=== PATIENT | male | born 2000 | race Caucasian/White ===

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

== ENCOUNTER 2024-08-10 20:42 | Observation (INO) ==
[2024-08-10 21:39] LABS: Albumin Globulin Ratio 2.2 (0.9-2); Albumin Level 5.4 gm/dl (3.4-5.0); BUN Creatinine Ratio 19.1 (10-20); Bilirubin,Total 1.4 mg/dl (0.2-1.0); Calcium 9.8 mg/dl (8.6-10.3); Creatinine Clr Calc Pharmacy 106.9 ml/min; Globulin 2.5 gm/dl (2.5-4.0); Potassium 3.9 mmol/L (3.5-5.1); Total Protein 7.9 gm/dl (6.0-8.3)
--- NOTE | 2024-08-10 21:44 | Emergency Department Note ---
Impression & Plan Right lower quadrant abdominal pain, Acute appendicitis ED Provider Note NAME: ALISON BANEGAS AGE: 24 SEX: Male INFORMANT: Patient ED PROVIDER(S): Dandre Aguirre MD CHIEF COMPLAINT: Abdominal pain PLAN: Disposition: Admitted Outpatient prescription management: none Referral: None MEDICAL DECISION MAKING: Patient presented because of right lower quadrant abdominal pain on examination he was tender in the right lower quadrant. CT imaging as well as blood work obtained. Patient does have a leukocytosis. CT scan reveals findings concerning for early appendicitis. Patient declined analgesia. He was hydrated. Consultation was made with general surgery, Dr. Goldberg. Case discussed and diagnostics were reviewed. Discussed initiation of IV Mefoxin and he agreed. He will admit the patient for operative management. I refer you to the EMR for further details. Care/management discussed with: senior manager creative services Level of care consideration(s): After review of the information above and other included data, I feel the patient requires escalation of care to admission Triage Nursing notes: reviewed and agree them. Vital Signs: reviewed and remarkable for mild tachycardia Additional History obtained from: none Chronic Medical/Social Conditions affecting care: none Prior/ Outside/ External records reviewed: none Differential Diagnosis: Appendicitis, testicular torsion, infections, diverticulitis, UTI, obstruction, mesenteric ischemia, aortic pathology, inflammatory bowel disease, renal colic, PUD, pancreatitis, biliary pathology, hernia, volvulus, constipation, as well as other pathologies. Diagnostics, independently interpreted by me: ECG: none Cardiac Monitoring: Cardiac monitoring ordered by me: The patient was placed on continuous cardiac monitoring and observed. It revealed a normal sinus rhythm at 98 beats per minute without ectopy or evidence of dysrhythmia. Medical decision rules: none Imaging studies: CT scan of the abdomen and pelvis is concerning for early appendicitis. I refer you to the EMR for further details. HPI: 24 year old Male arrives for evaluation of right lower quadrant abdominal pain. This started this morning around 12 PM and is persisting. Pain is worse with movement. The patient also notes the following associated symptoms, some transient nausea and vomiting. Denies any sick contacts or unusual foods. The patient has found no relieving factors. Current pain is rated as 7/10. Pt denies LOC, headache, fevers, chills, diaphoresis, visual changes, neck pain, chest pain, breathing difficulties, nausea, vomiting, back pain, melena, hematochezia, urinary symptoms, pain, numbness, weakness, lymphadenopathy, rash, or other complaints.. PAST MEDICAL HISTORY: See Below, PAST SURGICAL HISTORY: See Below, wisdom teeth SOCIAL HISTORY: Employed at the [employer], see below HOME MEDICATIONS: See Below ALLERGIES: See Below VITALS: See Below PHYSICAL EXAMINATION: GENERAL: Awake, alert, well-appearing, in no distress HENT: Normocephalic, atraumatic. Oropharynx unremarkable. EYES: Normal conjunctiva. Sclera non-icteric. NECK: Inspection normal. Non-tender. Supple. No nuchal rigidity. FROM. No masses. RESPIRATORY: Clear to auscultation. No wheezes. No rales. Normal respiratory effort. CARDIAC: No borderline tachycardic rmal rate. Normal rhythm. No murmurs. No rubs. Extremities warm and well perfused. Pulses equal. No JVD. GI: Soft, non-distended. Right lower quadrant tenderness to palpation. Positive obturator sign. No rebound but mild guarding. No masses. RECTAL: Deferred. MUSCULOSKELETAL: Atraumatic. Chest examination reveals no tenderness. The back is symmetrical on inspection without obvious abnormality. There is no CVA tenderness to palpation. No joint edema. LOWER EXTREMITIES: Calves are equal size bilaterally and non-tender. No edema. No discoloration. NEURO: Normal sensorium. No sensory or motor deficits noted. SKIN: No rash or jaundice noted. PROCEDURES: none CRITICAL CARE: none OBSERVATION NOTE: none Past Med/Surg History Problem List (Updated 08/11/24 @ 01:25 by Dandre Aguirre MD) Acute appendicitis (Acute) Right lower quadrant abdominal pain (Acute) Atypical nevi (Acute) Dietary counseling (Acute) Exercise counseling (Acute) Surgical History (System 11/17/19 @ 14:34 by Ashanti Antunez) Hx of circumcision Family History (System 11/17/19 @ 14:34 by Ashanti Antunez) Mother No pertinent family history Father No pertinent family history Social History (System 11/17/19 @ 14:34 by Ashanti Antunez) Smoking Status: Never smoker Do You Dip or Chew Tobacco: No; Hx Alcohol Use: No Hx Substance Use: No Preferred Language: Czech Current Living Situation Comment: lives with mom, dad, 3 brothers and 3 sisters Feels Safe at Home: Yes Childhood Exposure to Second-Hand Smoke: No Dental Care, Regularly: Yes Allergies Allergies Allergy/AdvReac Type Severity Reaction Status Date / Time No Known Allergies Allergy Verified 08/10/24 22:20 Home Meds Home Medications Medication Instructions Recorded Confirmed No Known Home Medications 11/05/18 08/10/24 Results & Data (ED) Vital Signs Vital Signs - 24 hr 08/10/24 20:44 08/10/24 21:02 08/10/24 21:02 Temperature 36.4 C L Temperature Source Oral Pulse Rate 66 69 Pulse Rate [Apical] 87 Pulse Rhythm Regular Pulse Strength Normal Respiratory Rate 16 12 14 Respiratory Effort / Characteristics Non-Labored Spontaneous Non-Labored Spontaneous Respiratory Depth Normal Respiratory Pattern Regular Blood Pressure 111/58 L Blood Pressure [Right Arm] 130/65 Blood Pressure Mean 75 Blood Pressure Mean [Right Arm] 86 Blood Pressure Position Sitting Pulse Oximetry 99 Oxygen Delivery Method Room Air Sepsis Recent Fever Within 48 Hours No Sepsis New/Unexplained Change in Mental Status N/A Sepsis Action Taken by Nursing No Action Required 08/10/24 21:06 08/10/24 22:53 08/10/24 23:00 Temperature Temperature Source Pulse Rate 65 106 H Pulse Rate [Apical] 106 H Pulse Rhythm Pulse Strength Respiratory Rate 16 19 Respiratory Effort / Characteristics Respiratory Depth Respiratory Pattern Blood Pressure 112/67 Blood Pressure [Right Arm] 114/70 Blood Pressure Mean 78 Blood Pressure Mean [Right Arm] 84 Blood Pressure Position Pulse Oximetry 98 97 Oxygen Delivery Method Room Air Sepsis Recent Fever Within 48 Hours Sepsis New/Unexplained Change in Mental Status Sepsis Action Taken by Nursing 08/10/24 23:30 08/11/24 00:59 Temperature Temperature Source Pulse Rate 110 H 105 H Pulse Rate [Apical] Pulse Rhythm Pulse Strength Respiratory Rate 22 Respiratory Effort / Characteristics Respiratory Depth Respiratory Pattern Blood Pressure 113/67 Blood Pressure [Right Arm] Blood Pressure Mean 77 Blood Pressure Mean [Right Arm] Blood Pressure Position Pulse Oximetry 98 Oxygen Delivery Method Sepsis Recent Fever Within 48 Hours Sepsis New/Unexplained Change in Mental Status Sepsis Action Taken by Nursing Laboratory Data 08/10/24 21:00 08/10/24 21:00 Lab Results 08/10/24 08/10/24 Range/Units 20:51 21:00 WBC 16.68 H (4.8-10.8) K/ul RBC 5.42 (4.70-6.10) M/uL Hgb 16.9 (14.0-18.0) g/dl Hct 47.6 (42.0-52.0) % MCV 87.8 (80.0-100.0) fL MCH 31.2 (25.0-34.0) pg MCHC 35.5 (32.0-36.0) g/dL RDW Std Deviation 37.6 (36.4-46.3) fL RDW Coeff of Ana 11.8 (11.5-14.5) % Plt Count 204 (130-400) K/uL MPV 9.2 L (9.4-12.4) fL Immature Gran % (Auto) 0.4 % Neut % (Auto) 89.4 % Lymph % (Auto) 5.5 % Wood % (Auto) 4.4 % Eos % (Auto) 0.1 % Baso % (Auto) 0.2 % Neut # (Auto) 14.93 H (1.40-6.50) K/uL Lymph # (Auto) 0.91 L (1.20-3.40) K/uL Wood # (Auto) 0.73 H (0.11-0.59) K/uL Eos # (Auto) 0.01 (0.00-0.50) K/uL Baso # (Auto) 0.04 (0.00-0.20) K/uL Immature Gran # (Auto) 0.06 (0.01-0.20) K/uL Sodium 138 (136-145) mmol/L Potassium 3.9 (3.5-5.1) mmol/L Chloride 102 (98-107) mmol/L Carbon Dioxide 26 (21-32) mmol/L Anion Gap 10 (3-11) BUN 21 (6-23) mg/dl Creatinine 1.10 (0.6-1.4) mg/dl Est Cr Clr Drug Dosing 106.9 ml/min eGFR 96.14 BUN/Creatinine Ratio 19.1 (10-20) Glucose 131 H (70-99(Fasting)) mg/dl Calcium 9.8 (8.6-10.3) mg/dl Total Bilirubin 1.4 H (0.2-1.0) mg/dl AST 22 (13-39) U/L ALT 17 (7-52) U/L Alkaline Phosphatase 55 (34-104) U/L Total Protein 7.9 (6.0-8.3) gm/dl Albumin 5.4 H (3.4-5.0) gm/dl Globulin 2.5 (2.5-4.0) gm/dl Albumin/Globulin Ratio 2.2 H (0.9-2) Lipase 10 L (11-82) U/L Urine Color Yellow Urine Appearance Clear (Clear) Urine pH 7.0 (4.5-7.5) Ur Specific [place] > 1.045 H (1.000-1.030) Urine Protein Trace H (Negative) Urine Glucose (UA) Negative (Negative) Urine Ketones 2+ H (Negative) Urine Blood Negative (Negative) Urine Nitrite Negative (Negative) Urine Bilirubin Negative (Negative) Urine Urobilinogen Negative (Negative) Ur Leukocyte Esterase Negative (Negative) Urine WBC (Auto) 0-5 (0-5) /hpf Urine RBC (Auto) 0-2 (0-2) /hpf U Hyaline Cast (Auto) 0-2 (0-2) /lpf U Epithel Cells (Auto) 0-2 (0-2) /hpf Urine Bacteria (Auto) None Seen (None Seen) Administered Medications Discontinued Medications Cefoxitin Sodium (Mefoxin) 2,000 mg in 60 mls @ 100 mls/hr IV NOW STA Stop: 08/11/24 00:25 Last Infusion: 08/11/24 01:01 Dose: Infused Documented By: Admin: 08/10/24 23:56 Dose: 100 mls/hr Documented By: NINA Sodium Chloride (Nss) 1,000 mls @ 999 mls/hr IV .Q1H1M ONE Stop: 08/11/24 00:52 Last Infusion: 08/11/24 01:02 Dose: Infused Documented By: Admin: 08/10/24 23:56 Dose: 999 mls/hr Documented By: NINA Lactated Ringer's (Lr) 500 mls @ 999 mls/hr IV .Q31M ONE Stop: 08/11/24 00:31 Last Admin: 08/11/24 00:59 Dose: 999 mls/hr Documented By: NINA Ioversol (Optiray 320 100ml) 90 ml IV ONCE ONE Stop: 08/10/24 22:17 Last Admin: 08/10/24 22:17 Dose: 90 ml Documented By: VIKY Imaging Data Radiologist's Impression: Abdomen/Pelvis CT 08/10/24 21:39 CR Exam(s): CT ABDOMEN + PELVIS With Contrast IV Amt: 90 cc opti 320 EXAM: CT Abdomen and Pelvis With Intravenous Contrast CLINICAL HISTORY: Reason for exam: RLQ abd pain. TECHNIQUE: Axial computed tomography images of the abdomen and pelvis with intravenous contrast. Automated exposure control was utilized for the study. A dose lowering technique was utilized adhering to the principles of ALARA. CONTRAST: Patient received 90 cc opti 320 of IV contrast COMPARISON: No relevant prior studies available. FINDINGS: Lung bases: No consolidation. ABDOMEN: Liver: No mass. Gallbladder and bile ducts: No calcified stones. No ductal dilation. Pancreas: No mass. No ductal dilation. Spleen: No splenomegaly. Adrenals: No mass. Kidneys and ureters: No solid mass. No hydronephrosis. Stomach and bowel: Unremarkable. No obstruction. No mucosal thickening. PELVIS: Appendix: The appendix is distended at 12 mm. There is some wall thickening. No significant inflammatory changes are seen. Bladder: No calculi are noted within the bladder.. Reproductive: Unremarkable as visualized. ABDOMEN and PELVIS: Intraperitoneal space: No free air. No significant fluid collection. Bones/joints: There is a bilateral spondylolysis with a slight spondylolisthesis of L5 on S1. Soft tissues: Unremarkable. Vasculature: No abdominal aortic aneurysm. Lymph nodes: No enlarged lymph nodes. IMPRESSION: The appendix is distended with some wall thickening. This may represent early or mild appendicitis Communications: Call Doctor Appendicitis Electronically signed by: Alberto Pérez MD 08/10/24 23:41 PM Discharge Plan Visit Data Chief Complaint: Abdominal Pain Stated Complaint: RLQ ABD PAIN,VOMITING ED Provider: Dandre Aguirre Discharge Problem: Right lower quadrant abdominal pain, Acute appendicitis Forms Stand Alone Forms: My [employer] Prescriptions Prescriptions: No Action No Known Home Medications Referrals Referrals: Isaac Sands MD [Primary Care Provider] -
[2024-08-10 21:47] LABS: Basophils # (auto) 0.04 K/uL (0.00-0.20); Basophils % (auto) 0.2 %; Eosinophils # (auto) 0.01 K/uL (0.00-0.50); Eosinophils % (auto) 0.1 %; Hematocrit (blood only) 47.6 % (42.0-52.0); Hemoglobin 16.9 g/dl (14.0-18.0); Immature Granulocytes # (auto) 0.06 K/uL (0.01-0.20); Immature Granulocytes % (auto) 0.4 %; Lymphocytes # (auto) 0.91 K/uL (1.20-3.40); Lymphocytes % (auto) 5.5 %; Mean Corpuscular Hemoglobin 31.2 pg (25.0-34.0); Mean Corpuscular Hgb Conc 35.5 g/dL (32.0-36.0); Mean Corpuscular Volume 87.8 fL (80.0-100.0); Mean Platelet Volume 9.2 fL (9.4-12.4); Monocytes # (auto) 0.73 K/uL (0.11-0.59); Monocytes % (auto) 4.4 %; Neutrophils # (auto) 14.93 K/uL (1.40-6.50); Neutrophils % (auto) 89.4 %; Platelet Count 204 K/uL (130-400); RDW Coefficient of Variation 11.8 % (11.5-14.5); RDW Standard Deviation 37.6 fL (36.4-46.3); Red Blood Count 5.42 M/uL (4.70-6.10); White Blood Count 16.68 K/ul (4.8-10.8)
[2024-08-10] MEDS: OPTIRAY 320 100ml IV ONE (22:17)
[2024-08-10 23:04] LABS: Appearance Urine Clear (Clear); Bacteria Urine Automated None Seen (None Seen); Bilirubin Urine Negative (Negative); Blood Urine Negative (Negative); Cast Urine Automated 0-2 /lpf (0-2); Color Urine Yellow; Epithelial Cell Urine Auto 0-2 /hpf (0-2); Glucose Urine UA Negative (Negative); Ketones Urine 2+ (Negative); Leukocyte Esterase Urine Negative (Negative); Nitrite Urine Negative (Negative); Protein Urine Trace (Negative); RBC Urine Automated 0-2 /hpf (0-2); Specific Gravity Urine > 1.045 (1.000-1.030); Urobilinogen Urine Negative (Negative); WBC Urine Automated 0-5 /hpf (0-5)
--- NOTE | 2024-08-10 23:42 | CT Scan Report ---
Exam(s): CT ABDOMEN + PELVIS With Contrast IV Amt: 90 cc opti 320 EXAM: CT Abdomen and Pelvis With Intravenous Contrast CLINICAL HISTORY: Reason for exam: RLQ abd pain. TECHNIQUE: Axial computed tomography images of the abdomen and pelvis with intravenous contrast. Automated exposure control was utilized for the study. A dose lowering technique was utilized adhering to the principles of ALARA. CONTRAST: Patient received 90 cc opti 320 of IV contrast COMPARISON: No relevant prior studies available. FINDINGS: Lung bases: No consolidation. ABDOMEN: Liver: No mass. Gallbladder and bile ducts: No calcified stones. No ductal dilation. Pancreas: No mass. No ductal dilation. Spleen: No splenomegaly. Adrenals: No mass. Kidneys and ureters: No solid mass. No hydronephrosis. Stomach and bowel: Unremarkable. No obstruction. No mucosal thickening. PELVIS: Appendix: The appendix is distended at 12 mm. There is some wall thickening. No significant inflammatory changes are seen. Bladder: No calculi are noted within the bladder.. Reproductive: Unremarkable as visualized. ABDOMEN and PELVIS: Intraperitoneal space: No free air. No significant fluid collection. Bones/joints: There is a bilateral spondylolysis with a slight spondylolisthesis of L5 on S1. Soft tissues: Unremarkable. Vasculature: No abdominal aortic aneurysm. Lymph nodes: No enlarged lymph nodes. IMPRESSION: The appendix is distended with some wall thickening. This may represent early or mild appendicitis Communications: Call Doctor Appendicitis Electronically signed by: Alberto Pérez MD 08/10/24 23:41 PM
[2024-08-10] MEDS ORDERED: ACETAMINOPHEN 325 MG TAB PO PRN (23:54)
[2024-08-10] MEDS ORDERED: ONDANSETRON INJ 2 MG/ML 2 ML VIAL IV PRN (23:54)
[2024-08-10] MEDS ORDERED: MoRPHine SULFATE 2 MG/ML CARP IV PRN (23:54)
[2024-08-10] MEDS ORDERED: oxyCODONE/ACETAMINOPHEN 5mg/325mg TAB PO PRN ×2 (23:54)
[2024-08-10] MEDS: SODIUM CHLORIDE 0.9% 1,000 ML IV ONE (23:56)
[2024-08-10] MEDS: cefOXitin 2,000 MG/60 ML BAG IV STA (23:56)
[2024-08-11] MEDS: LACTATED RINGER'S 500 ML IV ONE (00:59)
[2024-08-11] MEDS: MoRPHine SULFATE 4 MG/ML 1 ML CARP\\VIAL IV PRN (01:36)
--- NOTE | 2024-08-11 08:27 | History & Physical Report ---
Date of Service August 11, 2024 Assessment & Plan (1) Acute appendicitis: Plan: NPO IV mefoxin IVF to OR for lap appendectomy Admission and Anticipated Discharge Date Admission Date: August 10, 2024 History of Present Illness Primary Care Provider: Isaac Sands MD 24YO male presented to ED with right lower quadrant abdominal pain. He denies fever or chills. He did have some nausea but no vomiting. CT scan shows early appendicitis. He feels a little better this AM but pain persists. Allergies Allergy/AdvReac Type Severity Reaction Status Date / Time No Known Allergies Allergy Verified 08/10/24 22:20 Home Medications Medication Instructions Recorded Confirmed Type No Known Home Medications 11/05/18 08/10/24 History Past Med/Surg History Problem List (Updated 08/11/24 @ 01:25 by Dandre Aguirre MD) Acute appendicitis (Acute) Right lower quadrant abdominal pain (Acute) Atypical nevi (Acute) Dietary counseling (Acute) Exercise counseling (Acute) Surgical History (System 11/17/19 @ 14:34 by Ashanti Antunez) Hx of circumcision Family History (System 11/17/19 @ 14:34 by Ashanti Antunez) Mother No pertinent family history Father No pertinent family history Social History (System 11/17/19 @ 14:34 by Ashanti Antunez) Smoking Status: Never smoker Do You Dip or Chew Tobacco: No; Hx Alcohol Use: No Hx Substance Use: No Preferred Language: Uzbek Communication Ability: Effective 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 Beliefs That Will Affect Care: None Current Living Situation: Parent Current Living Situation Comment: Lives with parents Feels Safe at Home: Yes Childhood Exposure to Second-Hand Smoke: No Dental Care, Regularly: Yes Assistive Devices: None Review of Systems + anorexia; no fever and no chills no problem reported no problem reported no cough and no dyspnea no chest pain + abdominal pain and + nausea; no vomiting and no change in bowel habits no dysuria no problem reported no problem reported no localized weakness and no generalized weakness no behavioral changes no problem reported no problem reported Physical Exam Constitutional: WD/WN, vitals as above Eyes: + anicteric sclerae ENMT: external ear and nose normal, oropharynx normal Neck: trachea midline Respiratory: normal respiratory effort, lungs clear to auscultation Cardiovascular: RRR, no murmur, no edema Gastrointestinal (Abdomen): Inspection/Auscultation: abdomen normal to inspection and normal bowel sounds; abdomen not distended Percussion/Palpation: + abdomen tender and abdomen soft; no guarding and abdomen not rigid Musculoskeletal: Head/Neck/Chest: normocephalic and head atraumatic Skin: no rashes, warm and dry Psychiatric: Orientation: alert Results & Data Vital Signs (Past 12 Hours) Vital Signs Temp Pulse Pulse Resp BP BP Pulse Ox 08/11/24 07:33 36.7 C 88 18 128/63 97 08/11/24 02:15 36.7 C 90 20 106/58 L 97 08/11/24 02:00 94 H 20 119/56 L 99 08/11/24 01:30 96 H 20 122/63 100 08/11/24 01:00 101 H 21 119/67 99 08/11/24 00:59 105 H 08/11/24 00:30 112 H 20 105/73 97 08/11/24 00:00 108 H 20 107/79 96 08/10/24 23:30 110 H 22 113/67 98 08/10/24 23:00 106 H 19 112/67 97 08/10/24 22:53 106 H 16 114/70 98 08/10/24 21:06 65 08/10/24 21:02 69 14 08/10/24 21:02 87 12 130/65 08/10/24 20:44 36.4 C L 66 16 111/58 L 99 O2 Del Method 08/11/24 07:33 Room Air 08/11/24 02:15 Room Air 08/11/24 02:00 08/11/24 01:30 08/11/24 01:00 08/11/24 00:59 08/11/24 00:30 08/11/24 00:00 08/10/24 23:30 08/10/24 23:00 08/10/24 22:53 Room Air 08/10/24 21:06 08/10/24 21:02 08/10/24 21:02 08/10/24 20:44 Room Air Diagnostic Findings XAM: CT Abdomen and Pelvis With Intravenous Contrast CLINICAL HISTORY: Reason for exam: RLQ abd pain. TECHNIQUE: Axial computed tomography images of the abdomen and pelvis with intravenous contrast. Automated exposure control was utilized for the study. A dose lowering technique was utilized adhering to the principles of ALARA. CONTRAST: Patient received 90 cc opti 320 of IV contrast COMPARISON: No relevant prior studies available. FINDINGS: Lung bases: No consolidation. ABDOMEN: Liver: No mass. Gallbladder and bile ducts: No calcified stones. No ductal dilation. Pancreas: No mass. No ductal dilation. Spleen: No splenomegaly. Adrenals: No mass. Kidneys and ureters: No solid mass. No hydronephrosis. Stomach and bowel: Unremarkable. No obstruction. No mucosal thickening. PELVIS: Appendix: The appendix is distended at 12 mm. There is some wall thickening. No significant inflammatory changes are seen. Bladder: No calculi are noted within the bladder.. Reproductive: Unremarkable as visualized. ABDOMEN and PELVIS: Intraperitoneal space: No free air. No significant fluid collection. Bones/joints: There is a bilateral spondylolysis with a slight spondylolisthesis of L5 on S1. Soft tissues: Unremarkable. Vasculature: No abdominal aortic aneurysm. Lymph nodes: No enlarged lymph nodes. IMPRESSION: The appendix is distended with some wall thickening. This may represent early or mild appendicitis
[2024-08-11] MEDS ORDERED: ACETAMINOPHEN 1000 MG/100 ML IV IV ONE (09:12)
[2024-08-11] MEDS ORDERED: DEXAMETHASONE SOD INJ 4 MG/ML VIAL ONE (09:38)
[2024-08-11] MEDS ORDERED: MIDAZOLAM HCL 1 MG/ML 2ML VIAL ONE (09:38)
[2024-08-11] MEDS ORDERED: PROPOFOL IV EMULSION 10 MG/ML 20 ML VIAL IV ONE (09:38)
[2024-08-11] MEDS ORDERED: LIDOCAINE 2% 2 ML VIAL/AMP(20MG/ML) INFIL ONE (09:38)
[2024-08-11] MEDS ORDERED: ONDANSETRON INJ 2 MG/ML 2 ML VIAL IV PRN (09:38)
[2024-08-11] MEDS ORDERED: fentaNYL citrate PF 100 MCG/2 ML VIAL ONE ×2 (09:38→10:46)
[2024-08-11] MEDS ORDERED: ONDANSETRON INJ 2 MG/ML 2 ML VIAL ONE (09:38)
[2024-08-11] MEDS ORDERED: ePHEDrine sulfate 50 MG/ML AMP IV PRN (09:38)
[2024-08-11] MEDS ORDERED: ATROPINE SULFATE 0.1 MG/ML 10ML SYR IV PRN (09:38)
[2024-08-11] MEDS ORDERED: ROCURONIUM BROMIDE 10 MG/ML 5 ML VIAL IV ONE (09:38)
[2024-08-11] MEDS ORDERED: HYDROmorphone INJ 1 MG/ML SYRINGE IV PRN (09:38)
--- NOTE | 2024-08-11 09:38 | Anesthesiology Consultation ---
Date of Service August 11, 2024 Assessment & Plan Chart Review Chart Review: Acceptable Risk for Surgery and Patient NOT seen in Pre Admission Testing Consults Requested none ASA ASA1 Proposed Anesthesia Anesthesia Type: General Risk / Benefits Reviewed With: PT / POA / Parent / Guardian, Accepts Plan and Informed Consent Obtained History Surgery Operation Date: 08/11/24 08:20 Proposed Procedures p Laparoscopic Appendectomy - Percy Goldberg MD Height/Weight Height: 5 ft 10 in Weight: 78.4 kg Allergies Allergy/AdvReac Type Severity Reaction Status Date / Time No Known Allergies Allergy Verified 08/10/24 22:20 Medications Home Medications Medication Instructions Recorded Confirmed Last Taken No Known Home Medications 11/05/18 08/10/24 Unknown Active Medications Generic Name Dose Route Start Last Admin Trade Name Freq PRN Reason Stop Dose Admin Morphine Sulfate 4 mg 08/10/24 23:54 08/11/24 01:36 Morphine Sulfate 4 Mg/Ml 1 Ml Carp\Vial IV 08/24/24 23:53 4 mg Q3H PRN Administration Pain (6,7,8,9,10) NPO Date Last Intake of Fluids: 08/10/24 Time Last Intake of Fluids: 12:00 Date Last Intake of Solids: 08/10/24 Time Last Intake of Solids: 12:00 Exercise / Class Metabolic Activity 1 > 8 Run/Swim/Ski/Tennis Past Family History Family History Mother No pertinent family history Father No pertinent family history Past Surgical History Surgical History Hx of circumcision Past Anesthesia History No Hx of Anesthesia Complications and No Family Hx of Anesthesia Complications History of PONV No Hx of PONV and No Hx of Motion Sickness Social History Smoking Status: Never smoker Do You Dip or Chew Tobacco: No Hx Alcohol Use: No Hx Substance Use: No substance use type: does not use Review of Systems ROS Unobtainable: All systems reviewed & are unremarkable except as noted in HPI & below Physical Exam Vital Signs Last Vital Signs Temp 36.9 C 08/11/24 09:12 Pulse 91 H 08/11/24 09:12 Resp 18 08/11/24 09:12 BP 120/61 08/11/24 09:12 Pulse Ox 99 08/11/24 09:12 O2 Del Method Room Air 08/11/24 09:12 ENMT Mouth: no TMJ abnormality Thyromental Distance: > or= 3.5 Finger Breadths Mallampati Class: II Neck normal visual inspection and trachea midline; neck extension not limited Respiratory normal respiratory effort Auscultation: lungs clear to auscultation bilaterally Cardiovascular Rate/Rhythm: regular rate and regular rhythm Heart Sounds: no murmur Musculoskeletal Spine: normal cervical ROM Extremities: full ROM of extremities Neurologic moves all extremities Psychiatric Orientation: alert and oriented x 3 Testing Laboratory Results 08/10/24 21:00 08/10/24 21:00 Urine Color Yellow 08/10/24 20:51 Urine Appearance Clear (Clear) 08/10/24 20:51 Urine pH 7.0 (4.5-7.5) 08/10/24 20:51 Ur Specific [place] > 1.045 (1.000-1.030) H 08/10/24 20:51 Urine Protein Trace (Negative) H 08/10/24 20:51 Urine Glucose (UA) Negative (Negative) 08/10/24 20:51 Urine Ketones 2+ (Negative) H 08/10/24 20:51 Urine Nitrite Negative (Negative) 08/10/24 20:51 Ur Leukocyte Esterase Negative (Negative) 08/10/24 20:51 Urine WBC (Auto) 0-5 /hpf (0-5) 08/10/24 20:51 Urine RBC (Auto) 0-2 /hpf (0-2) 08/10/24 20:51 U Hyaline Cast (Auto) 0-2 /lpf (0-2) 08/10/24 20:51 U Epithel Cells (Auto) 0-2 /hpf (0-2) 08/10/24 20:51 Urine Bacteria (Auto) None Seen (None Seen) 08/10/24 20:51
[2024-08-11] MEDS: cefOXitin 2,000 MG in DEXTROSE 5 % MINI-B 50 ML IV SCH ×2 (10:53→14:55)
[2024-08-11] MEDS ORDERED: SUGAMMADEX SODIUM 200 MG/2 ML VIAL IV ONE (10:55)
[2024-08-11] MEDS: BUPIVACAINE/EPINEPHRINE 0.5% MPF 1:200,000 30 ML VIAL ONE (10:59)
[2024-08-11] MEDS ORDERED: KETOROLAC 30 MG/ML VIAL ONE (11:02)
--- NOTE | 2024-08-11 11:22 | Operative Report ---
Post Operative Report Pre & Post Diagnosis Operation Date: 08/11/24 08:20 Pre-Op Diagnosis: Appendicitis Post-Op Diagnosis: Appendicitis I identified the patient and participated in the time-out.: Yes Procedure Operation Date: 08/11/24 08:20 Actual Procedures p Laparoscopic Appendectomy(Not Applicable) - Percy Goldberg MD Surgeon Percy Goldberg MD Disaster Recovery Manager Asahnti Dalal PA-C Estimated Blood Loss 5 Findings Consistent with Post-Op Diagnosis acute appendicitis Specimens appendix to pathology Drains none Anesthesia Type General Complications none Indications This is a 24-year-old male who presented to the ED with acute abdominal pain. A workup was done and showed to have acute appendicitis. He was admitted placed on IV fluids and IV antibiotics. He will be taken to the OR for a laparoscopic appendectomy. We went over the risks in detail. Description of Procedure The patient was taken to the OR and placed in the supine position. He underwent excellent general endotracheal anesthesia. His abdomen was prepped and draped in normal sterile fashion. Using towel clips with tension on his abdominal wall an incision was made and a Veress needle was inserted. Good pneumoperitoneum was then achieved to 15 mmHg pressure. A an 11 visualized port was then placed in this incision. A 5 suprapubic and a 12 left lower quadrant port were placed in normal fashion. Patient was placed in head down and rolled to the left. His appendix was identified it was dilated and inflamed. A grasper was used to grasp the tip of the appendix. Harmonic scalpel was then used to transect the mesoappendix down to its base. A LYNN andrews 45 stapler was then used to transect the appendix at its base. The appendix was then placed in Endobag and brought out through the left lower quadrant incision. The ports were replaced and the pneumoperitoneum was reestablished. The abdomen was then irrigated and suctioned clear. There was no bleeding on the staple lines. No other abnormalities were noted. The patient was then placed in supine position. The ports were removed. 0 Vicryl suture was used to close the fascial defects. 0.5% Marcaine with local was used to create a local field block. Interrupted Vicryl sutures used to close the skin. Dermabond was then used to close the and reinforced the incisions. He tolerated procedure well without complications. He was then sent to the postop recovery period of observation. He will be sent to the floor for rest of his care, once criteria is met. Ashanti Dalal PA-C was present and participated in the entire procedure. There was no qualified resident available. She assisted in positioning, retraction, camera manipulation, and skin closure. I attest to the content of the Intraoperative Record and any orders documented therein. Any exceptions are noted below.
[2024-08-11] MEDS: fentaNYL citrate PF 100 MCG/2 ML VIAL IV PRN (11:40)
--- NOTE | 2024-08-11 13:16 | Anesthesiology Progress Note ---
Date of Service August 11, 2024 Anesthesia Post Procedure Vital Signs Vital Signs: Temp Pulse Pulse Pulse Resp BP BP 08/11/24 12:52 36.8 C 88 16 119/64 08/11/24 12:35 88 14 107/56 L 08/11/24 12:20 36.7 C 88 19 115/59 L 08/11/24 12:10 36.7 C 94 H 12 114/58 L 08/11/24 12:00 95 H 12 113/63 08/11/24 11:50 97 H 10 L 123/60 08/11/24 11:40 111 H 14 106/50 L 08/11/24 11:34 36.4 C L 109 H 13 118/53 L 08/11/24 09:12 36.9 C 91 H 18 120/61 08/11/24 07:40 08/11/24 07:33 36.7 C 88 18 128/63 08/11/24 02:15 36.7 C 90 20 106/58 L 08/11/24 02:00 94 H 20 119/56 L 08/11/24 01:30 96 H 20 122/63 08/11/24 01:00 101 H 21 119/67 08/11/24 00:59 105 H 08/11/24 00:30 112 H 20 105/73 08/11/24 00:00 108 H 20 107/79 08/10/24 23:30 110 H 22 113/67 08/10/24 23:00 106 H 19 112/67 08/10/24 22:53 106 H 16 114/70 08/10/24 21:06 65 08/10/24 21:02 69 14 08/10/24 21:02 87 12 130/65 08/10/24 20:44 36.4 C L 66 16 111/58 L Pulse Ox O2 Del Method 08/11/24 12:52 100 Room Air 08/11/24 12:35 95 Room Air 08/11/24 12:20 97 Room Air 08/11/24 12:10 97 Room Air 08/11/24 12:00 94 Room Air 08/11/24 11:50 100 Room Air 08/11/24 11:40 98 Room Air 08/11/24 11:34 99 Room Air 08/11/24 09:12 99 Room Air 08/11/24 07:40 Room Air 08/11/24 07:33 97 Room Air 08/11/24 02:15 97 Room Air 08/11/24 02:00 99 08/11/24 01:30 100 08/11/24 01:00 99 08/11/24 00:59 08/11/24 00:30 97 08/11/24 00:00 96 08/10/24 23:30 98 08/10/24 23:00 97 08/10/24 22:53 98 Room Air 08/10/24 21:06 08/10/24 21:02 08/10/24 21:02 08/10/24 20:44 99 Room Air Pain Intensity Left Lower Abdomen: Pain Intensity: 3 Transfer of Care Handoff Completed per policy Notes Mental Status: alert / awake / arousable Patient Amnestic to Procedure: Yes Nausea / Vomiting: adequately controlled Pain: adequately controlled Airway Patency, RR, SpO2: stable & adequate BP & HR: stable & adequate Hydration State: stable & adequate Anesthetic Complications: no major complications apparent and Pt Satisfied with anesthetic care
[2024-08-11 13:35] VITALS: RESP 18; TEMP 97.3
[2024-08-11 14:26] VITALS: BP 123/64; PULSE 92; O2SAT 95
--- NOTE | 2024-08-11 15:36 | Discharge Summary ---
Date of Service August 11, 2024 Admission HPI Per Admitting Provider 24YO male presented to ED with right lower quadrant abdominal pain. He denies fever or chills. He did have some nausea but no vomiting. CT scan shows early appendicitis. He feels a little better this AM but pain persists. Principal Diagnosis acute appendicitis Discharge Exam Constitutional WD/WN, vitals as above cooperative and comfortable; no acute distress and not ill appearing Respiratory normal respiratory effort; no respiratory distress, no labored breathing and no retractions Gastrointestinal (Abdomen) Inspection/Auscultation: abdomen normal to inspection and + abdominal surgical incision (c/d/i with dermabond); abdomen not distended Percussion/Palpation: + abdomen tender (at incision sites and RLQ appropriate postop ) and abdomen soft; no guarding, abdomen not rigid and abdomen not firm Psychiatric Orientation: alert and oriented x 3 Discharge Data Allergies Allergy/AdvReac Type Severity Reaction Status Date / Time No Known Allergies Allergy Verified 08/10/24 22:20 Consultations 08/10/24 23:50 ED Decision to Admit Stat Procedures Performed Operation Date: 08/11/24 08:20 Actual Procedures p Laparoscopic Appendectomy(Not Applicable) - Percy Goldberg MD Ordered Studies 08/10/24 21:39 CT Abd and Pelvis [CT abd pelvis IV con only] Stat Hospital Course (1) Acute appendicitis: Patient taken to operating room for laparoscopic appendectomy by Dr. Goldberg on 08/11/24. Found to have uncomplicated appendicitis. Tolerated procedure without difficulty and transferred back to med/surg floor for postop care. diet and activity advanced as tolerated. He tolerated advanced diet and pain was controlled without any medications postoperatively. He was able to urinate on his own postop. Patient was discharged home in evening of POD # 0 in stable condition Total Time Total Time Spent Total Time Spent (In Minutes): 20 Total Time Includes: Examination of the Patient, Discharge Planning and Medication Reconciliation Discharge Plan Discharge Items Patient Disposition: Home - Self-Care Reason For Visit: APPENDICITIS Discharge Diagnosis: acute appendicitis Condition on Discharge: Good Activity: Per Instructions section Non-emergency contact: Primary Care Provider and Surgeon Call non-emergency contact if: you have any medication questions, your pain is not controlled, your pain is worsening, your pain is concerning for you, you have a fever, your temperature is above 101, your wound has increased redness, your wound has increased drainage and your wound pain has increased Follow-up/Referrals: Isaac Sands MD [Primary Care Provider] - Ashanti Dalal PA-C [Physician Kitchen Chef] - Diet: Regular Addtl Attending Provider Instructions: Post-Surgical ~Discharge Instructions Activity Recommendations: - lifting limitation: (20 pounds for 3-4 weeks), - exercise/sex/sports limit: (nonstrenuous for 2 weeks), - driving or machine use limit: (none for at least 3 days or no longer having pain and taking narcotic pain medication), - Shower/bathe limit: (may shower beginning tomorrow) No submerging incisions underwater for 2 weeks Diet: - Resume previous diet SPECIAL CARE INSTRUCTIONS: - May shower.. Let water run over area and pat dry. - Leave surgical glue on incisions, this will fall off on its own. Do not pick at it as this can cause infection. - Call the surgeon's office with any questions or concerns - - (ex. temperature higher than 101 degrees F, excessive bleeding or pain). MEDICATIONS: - Resume previous medications unless instructed otherwise by your surgeon. - May alternate extra strength Tylenol and Ibuprofen as needed for mild to moderate pain - 650 mg Tylenol every 6 hours as needed - Ibuprofen 600 mg every 6 hours as needed take with food - Percocet 1 every 6 hours, as needed for moderate to severe pain - If alternating Tylenol and Ibuprofen, be aware each tablet of Percocet has 325 mg of Tylenol in it. DO NOT exceed 3,000 mg of Tylenol in 24 hour period. - Recommend daily stool softener (Colace) while taking narcotic pain medication to prevent constipation and straining. Drink plenty of water daily. FOLLOW UP VISIT: - If not already scheduled, please call the office to schedule a two week follow-up appointment. Office number Pending Studies at Discharge: Yes (surgical pathology, will be reviewed at postop visit) Stand-Alone Forms: [facility] [employer], Smoking Cessation Medications and DC Order Prescriptions: New oxycodone-acetaminophen 5-325 mg tablet 1 tab PO Q6H PRN (Reason: pain) Qty: 5 0RF No Action No Known Home Medications Discharge Orders: Discharge Order (Routine); Ordered 08/11/24 Ordered By: Ashanti Dalal Admission Data Admit Date/Time: 08/10/24 23:57 Attending Provider: Percy Goldberg Admit Provider: Percy Goldberg Primary Care Provider: Isaac Sands Other Providers: Percy Goldberg
== END 2024-08-11 18:37 | disposition home or self-care (01) ==
LOC: 3E 20:42 → ED 20:42 → 3E 08-11 02:10
DX: K35.80 Unspecified acute appendicitis